=== PATIENT | male | born 1950 | race Caucasian/White ===

== ENCOUNTER 2018-05-07 04:18 | Inpatient (IN) | payer OTHER ==
[~2018-05-07] VITALS: Ht 157.5 cm; Wt 87.1 kg
[2018-05-07 05:13] LABS: BASOPHILS % 0.5 % (0.0-2.0); EOSINOPHILS % 2.6 % (0.0-5.0); HEMATOCRIT. 42.2 % (42.0-52.0); HEMOGLOBIN. 14.2 g/dL (14.0-18.0); LYMPHOCYTES % 23.7 % (20.0-50.0); MEAN CORPUSCULAR HEMOGLOBIN 28.7 pg (28.0-32.0); MEAN CORPUSCULAR VOLUME 85.2 fL (80.0-94.0); MEAN PLATELET VOLUME 7.7 fl (7.4-10.4); MONOCYTES % 4.7 % (2.0-8.0); NEUTROPHILS % 68.5 % (40.0-76.0); PLATELET 227 x1000/uL (130-400); RED BLOOD CELL COUNT 4.95 mill/uL (4.7-6.1); RED CELL DISTRIBUTION WIDTH 13.7 % (11.6-14.6)
[2018-05-07 05:15] LABS: CHLORIDE 107 mEq/L (98-107)
[2018-05-07] MEDS ORDERED: MORPHINE SULFATE 4 MG/ML CPJ (NOT FOR IM USE) IV ONE ×2 (05:30→05:45)
[2018-05-07] MEDS ORDERED: PIPERACILLIN/TAZOBACTAM 3.375GM/50ML PREMIX IV ONE (06:00)
[2018-05-07 07:07] LABS: CLARITY URINE CLEAR (CLEAR); COLOR URINE YELLOW (YELLOW); KETONES URINE NEGATIVE (NEGATIVE); LEUKOCYTE ESTERASE URINE NEGATIVE (NEGATIVE); NITRITE URINE NEGATIVE (NEGATIVE); OCCULT BLOOD URINE NEGATIVE (NEGATIVE); PROTEIN URINE NEGATIVE (NEGATIVE); SPECIFIC GRAVITY URINE 1.013 (1.005-1.030); UROBILINOGEN URINE 0.2 E.U./dL (0.2-1.0)
[2018-05-07] MEDS: SODIUM CHLORIDE 0.9% 1,000 ML IV SCH ×2 (07:36→11:56)
[2018-05-07] MEDS ORDERED: ACETAMINOPHEN 325MG TABLET PO PRN (07:45)
[2018-05-07] MEDS ORDERED: NA PHOS,M-B/NA PHOS,DI-BA ENEMA 118ML PR PRN (07:45)
[2018-05-07] MEDS ORDERED: GUAIFENESIN 200MG/10ML SUGAR FREE UDC PO PRN (07:45)
[2018-05-07] MEDS ORDERED: MORPHINE SULFATE 4 MG/ML CPJ (NOT FOR IM USE) IV PRN (07:45)
[2018-05-07] MEDS ORDERED: KETOROLAC 15MG/ML VIAL IV PRN (07:45)
[2018-05-07] MEDS ORDERED: ONDANSETRON HCL 4MG/2ML INJ IV PRN (07:45)
[2018-05-07] MEDS ORDERED: TRAMADOL 50MG TABLET PO PRN (07:45)
[2018-05-07] MEDS ORDERED: MAGNESIUM/ALUMINUM HYDROXIDE/SIMETHICONE 30ML UDC PO PRN (07:45)
[2018-05-07] MEDS ORDERED: IPRATROPIUM/ALBUTEROL 0.5-3(2.5)MG/3ML NEB INH PRN (07:45)
[2018-05-07] MEDS ORDERED: ZOLPIDEM TARTRATE 5MG TABLET PO PRN (07:45)
[2018-05-07] MEDS ORDERED: ENOXAPARIN 40MG/0.4ML SYR SUBCUT SCH (07:45)
[2018-05-07] MEDS ORDERED: CLONIDINE 0.1MG TABLET PO PRN (07:45)
[2018-05-07] MEDS ORDERED: DOCUSATE SODIUM 100MG CAPSULE PO PRN (07:45)
[2018-05-07 10:00] VITALS: BP 149/87
[2018-05-07] MEDS ORDERED: NITROGLYCERIN 0.4MG TABLET SL SL PRN (10:00)
[2018-05-07 11:39] VITALS: BP 106/65
[2018-05-07] MEDS: FAMOTIDINE 20MG TABLET PO SCH ×2 (11:47→21:17)
[2018-05-07] MEDS: ASCORBIC ACID 500 MG TABLET PO SCH ×2 (11:47→21:17)
[2018-05-07] MEDS: ENOXAPARIN 40MG/0.4ML SYR SUBCUT SCH (11:48)
[2018-05-07] MEDS: CEFTRIAXONE 1 G PREMIX 50 ML IV SCH (11:56)
[2018-05-07] MEDS: METRONIDAZOLE 500 MG PREMIX 100 ML IV SCH ×2 (12:44→21:17)
[2018-05-07 16:00] VITALS: BP 110/61
[2018-05-07 16:38] LABS: BASOPHILS % 0.6 % (0.0-2.0); EOSINOPHILS % 3.1 % (0.0-5.0); HEMATOCRIT. 41.3 % (42.0-52.0); HEMOGLOBIN. 13.8 g/dL (14.0-18.0); LYMPHOCYTES % 29.3 % (20.0-50.0); MEAN CORPUSCULAR HEMOGLOBIN 28.6 pg (28.0-32.0); MEAN CORPUSCULAR VOLUME 85.4 fL (80.0-94.0); MEAN PLATELET VOLUME 8.1 fl (7.4-10.4); MONOCYTES % 5.8 % (2.0-8.0); NEUTROPHILS % 61.2 % (40.0-76.0); PLATELET 229 x1000/uL (130-400); RED BLOOD CELL COUNT 4.83 mill/uL (4.7-6.1); RED CELL DISTRIBUTION WIDTH 13.4 % (11.6-14.6)
[2018-05-07 16:49] LABS: CHLORIDE 105 mEq/L (98-107)
[2018-05-07 20:00] VITALS: BP 116/58
[2018-05-08] VITALS: BP 118/59
[2018-05-08 04:00] VITALS: BP 112/55
[2018-05-08] MEDS: METRONIDAZOLE 500 MG PREMIX 100 ML IV SCH ×2 (05:44→13:52)
[2018-05-08 07:07] LABS: BASOPHILS % 0.7 % (0.0-2.0); EOSINOPHILS % 3.7 % (0.0-5.0); HEMATOCRIT. 37.3 % (42.0-52.0); HEMOGLOBIN. 12.9 g/dL (14.0-18.0); LYMPHOCYTES % 34.9 % (20.0-50.0); MEAN CORPUSCULAR HEMOGLOBIN 29.4 pg (28.0-32.0); MEAN CORPUSCULAR VOLUME 85.3 fL (80.0-94.0); MEAN PLATELET VOLUME 7.9 fl (7.4-10.4); MONOCYTES % 5.8 % (2.0-8.0); NEUTROPHILS % 54.9 % (40.0-76.0); PLATELET 199 x1000/uL (130-400); RED BLOOD CELL COUNT 4.38 mill/uL (4.7-6.1); RED CELL DISTRIBUTION WIDTH 13.6 % (11.6-14.6)
[2018-05-08 08:09] LABS: CHLORIDE 106 mEq/L (98-107)
[2018-05-08] MEDS: ASCORBIC ACID 500 MG TABLET PO SCH ×2 (09:15→20:17)
[2018-05-08] MEDS: FAMOTIDINE 20MG TABLET PO SCH ×2 (09:15→20:17)
[2018-05-08] MEDS: ENOXAPARIN 40MG/0.4ML SYR SUBCUT SCH (09:16)
[2018-05-08] MEDS: CEFTRIAXONE 1 G PREMIX 50 ML IV SCH (09:17)
[2018-05-08] MEDS: SODIUM CHLORIDE 0.9% 1,000 ML IV SCH (09:29)
[2018-05-08 12:00] VITALS: BP 115/51
[2018-05-08 14:42] LABS: *COCAINE SCREEN URINE NEGATIVE (NEGATIVE)
[2018-05-08 14:43] LABS: *AMPHETAMINES SCREEN URINE NEGATIVE (NEGATIVE); *BARBITURATES SCREEN URINE NEGATIVE (NEGATIVE); CANNABINOID URINE SCREEN NEGATIVE (NEGATIVE); METHADONE URINE SCREEN NEGATIVE (NEGATIVE); OPIATES URINE SCREEN NEGATIVE (NEGATIVE); PHENCYCLIDINE URINE SCREEN NEGATIVE (NEGATIVE)
[2018-05-08 14:44] LABS: *BENZODIAZEPINES SCREEN URINE NEGATIVE (NEGATIVE)
[2018-05-08 16:00] VITALS: BP 131/68
[2018-05-08 20:06] VITALS: BP 123/64
[2018-05-09] VITALS: BP 124/58
[2018-05-09] MEDS: METRONIDAZOLE 500 MG PREMIX 100 ML IV SCH ×3 (02:27→18:00)
[2018-05-09] MEDS: SODIUM CHLORIDE 0.9% 1,000 ML IV SCH ×2 (02:33→18:00)
[2018-05-09 04:00] VITALS: BP 116/60
[2018-05-09 08:00] VITALS: BP 121/74
[2018-05-09] MEDS: FAMOTIDINE 20MG TABLET PO SCH ×3 (10:07→20:37)
[2018-05-09] MEDS: ASCORBIC ACID 500 MG TABLET PO SCH ×2 (10:07→20:28)
[2018-05-09] MEDS: ENOXAPARIN 40MG/0.4ML SYR SUBCUT SCH (10:07)
[2018-05-09] MEDS: CEFTRIAXONE 1 G PREMIX 50 ML IV SCH (10:53)
[2018-05-09 12:00] VITALS: BP 144/70
[2018-05-09 16:00] VITALS: BP 142/71
[2018-05-09 20:00] VITALS: BP 122/65
[2018-05-10] VITALS: BP 129/68
[2018-05-10] MEDS: SODIUM CHLORIDE 0.9% 1,000 ML IV SCH (02:27)
[2018-05-10] MEDS: METRONIDAZOLE 500 MG PREMIX 100 ML IV SCH (02:27)
[2018-05-10 04:00] VITALS: BP 121/67
[2018-05-10 08:00] VITALS: BP 126/69
[2018-05-10] MEDS: FAMOTIDINE 20MG TABLET PO SCH (08:42)
[2018-05-10] MEDS: ASCORBIC ACID 500 MG TABLET PO SCH (08:42)
[2018-05-10] MEDS: ENOXAPARIN 40MG/0.4ML SYR SUBCUT SCH (08:43)
[2018-05-10] MEDS: CEFTRIAXONE 1 G PREMIX 50 ML IV SCH (08:48)
[2018-05-10 10:21] VITALS: BP 123/64
== END 2018-05-10 11:10 | disposition home or self-care (01) | DRG 392 ==
LOC: ER 04:18 → 8WST 05:51 → ENRESERV 06:27
PROVIDERS: ADMIT Internal Medicine; ATTEND Internal Medicine
DX: A08.4 Viral intestinal infection, unspecified (principal); E44.0 Moderate protein-calorie malnutrition; E83.51 Hypocalcemia; E83.52 Hypercalcemia; K21.9 Gastro-esophageal reflux disease without esophagitis; K76.0 Fatty (change of) liver, not elsewhere classified; N20.0 Calculus of kidney; Z96.659 Presence of unspecified artificial knee joint; Z68.35 Body mass index [BMI] 35.0-35.9, adult
CPT/HCPCS: 36415; 74176; 80061; 80305; 83036; 86850; 86900; 93970; 96372; 96374; 96375; 99285; J0696; J1650; J1885; J2270; J2543; J3490; J7030; J7050